=== PATIENT | male | born 1970 | race American Indian/Alaskan Native ===

== ENCOUNTER 2016-07-13 23:40 | Emergency (ER) | payer OTHER ==
[2016-07-14 00:57] LABS: Basophils % (Auto) 0.7 % (0.0-1.8); Eosinophils % (Auto) 0.2 % (0.0-4.3); Hematocrit 47.3 % (35.5-45.6); Hemoglobin 15.7 gm/dl (11.8-15.2); Mean Corpuscular HGB Conc 33 % (32-34); Mean Corpuscular Hemoglobin 30 pg (28-32); Mean Corpuscular Volume 90 fl (84-94); Platelet Count 308 K/mm3 (140-440); Red Blood Count 5.25 M/mm3 (3.65-5.03); Red Cell Distribution Width 13.1 % (13.2-15.2)
[2016-07-14 01:18] LABS: Anion Gap 25 mmol/L; BUN/Creatinine Ratio 16.15; Blood Urea Nitrogen 21 mg/dL (9-20); Calcium 9.6 mg/dL (8.4-10.2); Carbon Dioxide 19 mmol/L (22-30); Glucose 104 mg/dL (75-100); Potassium 4.4 mmol/L (3.6-5.0); Sodium 138 mmol/L (137-145)
[2016-07-14] MEDS ORDERED: TORADOL IV ONE (06:34)
--- NOTE | 2016-07-14 07:09 | Emergency Department Report ---
ED Chest Pain HPI - General Chief Complaint: Chest Pain Stated Complaint: CHEST PAIN/SOB Time Seen by Provider: 07/14/16 06:19 Source: patient, family Mode of arrival: Ambulatory Limitations: No Limitations - History of Present Illness Initial Comments: 46-year-old male with no significant past medical history presents to the hospital with complaints of chest pain since 7 PM. Patient noticed chest pain and shortness of breath while walking to the store last night. Chest pain is in the middle of his chest, described as a intermittent aching pain rated 7/10 in intensity. No aggravating or alleviating factors reported. For the past 4 days patient has had cough productive of clear mucus on occasion and nasal congestion. He denies any fever, calf tenderness, leg edema, history of PE. He also denies cardiac risk factors and denies past medical history, tobacco use , or family history of CAD/stent/HI. Severity scale (0 -10): 0 - Related Data Previous Rx's Medication Instructions Recorded Last Taken Type Benzonatate [Tessalon Perles] 100 mg PO Q8HR PRN #30 capsule 07/14/16 Unknown Rx Ibuprofen [Motrin 800 MG tab] 800 mg PO Q8HR PRN #30 tablet 07/14/16 Unknown Rx Loratadine/Pseudoephedrine 1 tab PO Q12H #30 tablet 07/14/16 Unknown Rx [Claritin-D 12HR] traMADol [Ultram 50 MG tab] 50 mg PO Q6HR PRN #20 tablet 07/14/16 Unknown Rx Allergies Allergy/AdvReac Type Severity Reaction Status Date / Time No Known Allergies Allergy Unverified 01/12/16 08:51 HYACINTH score - Hyacinth Score Age > 65: (0) No Aspirin use within the Past 7 Days: (0) No 3 or more CAD Risk Factors: (0) No 2 or more Angina events in past 24 hrs: (0) No Known CAD with more than 50% Stenosis: (0) No Elevated Cardiac Markers: (0) No ST Deviation Greater than 0.5mm: (0) No HYACINTH Score: 0 ED Review of Systems ROS: Stated complaint: CHEST PAIN/SOB Other details as noted in HPI Comment: All other systems reviewed and negative Other: Constitutional: No fevers chills Eyes: No eye pain visual changes ENT: No ear pain or throat pain. + nasal congestion Neck: Denies pain Respiratory: as per hpi Cardiovascular: Denies palpitations, syncope GI: Denies abdominal pain, nausea, vomiting, diarrheaa : Denies dysuria Musculoskeletal: Denies back pain Skin: Denies rash, lesions, erythema Neurologic: Denies headache, numbness, weakness Psychiatric: Denies suicidal ideation, hallucinations ED Past Medical Hx - Past Medical History Previous Medical History?: No - Surgical History Past Surgical History?: No - Social History Smoking Status: Former Smoker Substance Use Type: Alcohol - Medications Home Medications: Home Medications Medication Instructions Recorded Confirmed Last Taken Type Benzonatate [Tessalon Perles] 100 mg PO Q8HR PRN #30 capsule 07/14/16 Unknown Rx Ibuprofen [Motrin 800 MG tab] 800 mg PO Q8HR PRN #30 tablet 07/14/16 Unknown Rx Loratadine/Pseudoephedrine 1 tab PO Q12H #30 tablet 07/14/16 Unknown Rx [Claritin-D 12HR] traMADol [Ultram 50 MG tab] 50 mg PO Q6HR PRN #20 tablet 07/14/16 Unknown Rx ED Physical Exam - General Limitations: No Limitations - Other Other exam information: General: No limitations, patient is alert in no acute distress Head exam: Atraumatic, normocephalic Eyes exam: Normal appearance ENT: Moist mucous membrane, normal oropharynx Neck exam: Normal inspection, full range of motion, no meningismus nontender Respiratory exam: Clear to auscultation bilateral, no wheezes, rales, crackles Cardiovascular: Normal rate and rhythm, mild tenderness reproducible just to the right of the mid sternum Abdomen: Soft, nondistended, and nontender, with normal bowel sounds, no rebound, or guarding Extremity: Full range of motion normal inspection no deformity, no calf tenderness or edema Back: Normal Inspection, full range of motion, no tenderness Neurologic: Alert, oriented x3, cranial nerves intact, no motor or sensory deficit Psychiatric: normal affect, normal mood Skin: Warm, dry, intact ED Course Vital Signs 07/14/16 07/14/16 07/14/16 00:26 05:10 07:01 Temperature 98.8 F Pulse Rate 75 52 L 52 L Respiratory 22 20 18 Rate Blood Pressure 133/91 Blood Pressure 133/77 128/76 [Left] O2 Sat by Pulse 100 99 98 Oximetry - Reevaluation(s) Reevaluation #1: 07/14/16 07:08 IV Toradol and tramadol ordered - Consultations Consultation #1: 07/14/16 07:[address] Kohli regarding patient's bradycardia and chest pain. As far as Bradycardia is concerned since patient has a history of bradycardia, has normal blood pressure, and has asymptomatic bradycardia this alone is not a reason to admit him and patient may follow-up ED Medical Decision Making - Lab Data Result diagrams: 07/14/16 00:46 07/14/16 00:46 Lab Results 07/14/16 07/14/16 07/14/16 Range/Units 00:46 00:46 03:17 WBC 9.0 (4.5-11.0) K/mm3 RBC 5.25 H (3.65-5.03) M/mm3 Hgb 15.7 H (11.8-15.2) gm/dl Hct 47.3 H (35.5-45.6) % MCV 90 (84-94) fl MCH 30 (28-32) pg MCHC 33 (32-34) % RDW 13.1 L (13.2-15.2) % Plt Count 308 (140-440) K/mm3 Lymph % (Auto) 26.4 (13.4-35.0) % [place] % (Auto) 5.5 (0.0-7.3) % Eos % (Auto) 0.2 (0.0-4.3) % Baso % (Auto) 0.7 (0.0-1.8) % Lymph # 2.4 (1.2-5.4) K/mm3 [place] # 0.5 (0.0-0.8) K/mm3 Eos # 0.0 (0.0-0.4) K/mm3 Baso # 0.1 (0.0-0.1) K/mm3 Seg Neutrophils % 67.2 (40.0-70.0) % Seg Neutrophils # 6.0 (1.8-7.7) K/mm3 D-Dimer (0-234) ng/mlDDU Sodium 138 (137-145) mmol/L Potassium 4.4 (3.6-5.0) mmol/L Chloride 98.0 (98-107) mmol/L Carbon Dioxide 19 L (22-30) mmol/L Anion Gap 25 mmol/L BUN 21 H (9-20) mg/dL Creatinine 1.3 (0.8-1.5) mg/dL Estimated GFR > 60 ml/min BUN/Creatinine Ratio 16.15 % Glucose 104 H (75-100) mg/dL Calcium 9.6 (8.4-10.2) mg/dL Troponin T < 0.010 < 0.010 (0.00-0.029) ng/mL 07/14/16 07/14/16 Range/Units 05:25 06:40 WBC (4.5-11.0) K/mm3 RBC (3.65-5.03) M/mm3 Hgb (11.8-15.2) gm/dl Hct (35.5-45.6) % MCV (84-94) fl MCH (28-32) pg MCHC (32-34) % RDW (13.2-15.2) % Plt Count (140-440) K/mm3 Lymph % (Auto) (13.4-35.0) % [place] % (Auto) (0.0-7.3) % Eos % (Auto) (0.0-4.3) % Baso % (Auto) (0.0-1.8) % Lymph # (1.2-5.4) K/mm3 [place] # (0.0-0.8) K/mm3 Eos # (0.0-0.4) K/mm3 Baso # (0.0-0.1) K/mm3 Seg Neutrophils % (40.0-70.0) % Seg Neutrophils # (1.8-7.7) K/mm3 D-Dimer < 135 (0-234) ng/mlDDU Sodium (137-145) mmol/L Potassium (3.6-5.0) mmol/L Chloride (98-107) mmol/L Carbon Dioxide (22-30) mmol/L Anion Gap mmol/L BUN (9-20) mg/dL Creatinine (0.8-1.5) mg/dL Estimated GFR ml/min BUN/Creatinine Ratio % Glucose (75-100) mg/dL Calcium (8.4-10.2) mg/dL Troponin T < 0.010 (0.00-0.029) ng/mL - EKG Data -: EKG Interpreted by Me (sinus bradycardia rate [address] elevation or T- wave inversion) - EKG Data When compared to previous EKG there are: previous EKG unavailable - Radiology Data Radiology results: image reviewed (cxr pa/lat: lacie) - Medical Decision Making Patient ambulating in the ED without difficulty. Chest pain improved with Toradol and continues to be reproducible on the right side of mid chest just lateral to the sternum. Heart rate does decrease to the high 30s the patient states his typical heart rate is in the 40s he does not report any lightheadedness or syncope. 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 There are no signs of pneumonia, wheezing, or hypoxia. The patient's symptoms are secondary to URI and chest wall pain from coughing. Patient will be discharged home with symptomatic treatment with PMD follow-up encouraged. - Differential Diagnosis atypical chest pain, costochondritis, PE, HI, unstable angina, bronchitis Critical Care Time: No Critical care attestation.: If time is entered above; I have spent that time in minutes in the direct care of this critically ill patient, excluding procedure time. ED Disposition Clinical Impression: URI (upper respiratory infection), Nasal congestion, Costochondritis, acute Disposition: DISCHARGED TO HOME OR SELFCARE Is pt being admited?: No Does the pt Need Aspirin: No Condition: Stable Instructions: Upper Respiratory Infection (ED), Costochondritis (ED) Additional Instructions: Take the medication as prescribed. Follow up with the doctor or clinic provided. Return if symptoms worsen. Prescriptions: Benzonatate [Tessalon Perles] 100 mg PO Q8HR PRN #30 capsule PRN Reason: Cough Ibuprofen [Motrin 800 MG tab] 800 mg PO Q8HR PRN #30 tablet PRN Reason: Pain Loratadine/Pseudoephedrine [Claritin-D 12HR] 1 tab PO Q12H #30 tablet traMADol [Ultram 50 MG tab] 50 mg PO Q6HR PRN #20 tablet PRN Reason: Pain Referrals: SAMUEL COYLE MD [Staff Physician] - 3-5 Days [facility] [Provider Group] - 3-5 Days Forms: Work/School Release Form(ED) Time of Disposition: 08:15
--- NOTE | 2016-07-14 07:35 | XRay Report ---
ROUTINE CHEST, TWO VIEWS: HISTORY: Cough, shortness of breath. The trachea, heart, mediastinal contour, lung martínez and bony thorax are unremarkable. IMPRESSION: Unremarkable chest x-ray.
[2016-07-14 08:51] VITALS: BP 158/86
== END 2016-07-14 08:50 | disposition home or self-care (01) ==
LOC: ED 23:40
DX: J06.9 Acute upper respiratory infection, unspecified (principal); R09.81 Nasal congestion; M94.0 Chondrocostal junction syndrome [Tietze]; Z87.891 Personal history of nicotine dependence
CPT/HCPCS: 36415; 71020; 80048; 84484; 85025; 85379; 93005; 93010; 96374; 99285; J1885

== ENCOUNTER 2017-11-04 06:13 | Emergency (ER) | payer OTHER ==
[2017-11-04] MEDS ORDERED: MORPHINE IM ONE (06:33)
--- NOTE | 2017-11-04 06:33 | Emergency Department Report ---
ED Chest Pain HPI - General Stated Complaint: CHEST PAIN Time Seen by Provider: 11/04/17 06:15 Source: patient, EMS Mode of arrival: Stretcher Limitations: No Limitations - History of Present Illness Initial Comments: She is a 47-year-old male that presents emergency room with chest pain 1 hour. Patient states he was at work and developed a very strong severe chest pain in his right chest radiating to the anterior left chest. Patient states the pain is a 10 out of 10. Patient was brought in by EMS. Patient was given aspirin and nitroglycerin in route. Patient denies nausea and vomiting. Patient does complain of diaphoresis and shortness of breath. MD Complaint: chest pain -: Sudden Onset: during exertion Pain Location: right chest Pain Radiation: other (radiates to from rigth lateral chest to left anterior chest. ) Severity: severe Severity scale (0 -10): 7 Quality: sharp Consistency: constant Improves With: rest Worsens With: exertion, palpation, movement re: diaphoresis, dyspnea, sense of impending doom. denies: nausea, vomting Other Symptoms: denies: cough, fever, syncope, rash, acid taste in mouth, leg swelling, palpitations, burping Treatments Prior to Arrival: aspirin, nitroglycerin Aspirin use within the Past 7 Days: (0) No - Related Data On Oral Contraceptives: No Home Medications Medication Instructions Recorded Confirmed Last Taken No Known Home Medications [No 11/04/17 11/04/17 Unknown Reported Home Medications] Allergies Allergy/AdvReac Type Severity Reaction Status Date / Time No Known Allergies Allergy Unverified 01/12/16 08:51 Heart Score - HEART Score History: Slightly suspicious EKG: Normal Age: 45-65 Risk factors: No known risk factors Troponin: < normal limit HEART Score: 1 ED Review of Systems ROS: Stated complaint: CHEST PAIN Other details as noted in HPI Constitutional: denies: chills, fever Eyes: denies: eye pain, eye discharge, vision change ENT: denies: ear pain, throat pain Respiratory: shortness of breath, SOB with exertion, SOB at rest. denies: cough , wheezing Cardiovascular: chest pain. denies: palpitations Endocrine: no symptoms reported Gastrointestinal: denies: abdominal pain, nausea, diarrhea Genitourinary: denies: urgency, dysuria Musculoskeletal: denies: back pain, joint swelling, arthralgia Skin: denies: rash, lesions Neurological: denies: headache, weakness, paresthesias Psychiatric: denies: anxiety, depression Hematological/Lymphatic: denies: easy bleeding, easy bruising ED Past Medical Hx - Past Medical History Previous Medical History?: No - Surgical History Past Surgical History?: No - Family History Family history: hypertension - Social History Smoking Status: Former Smoker Substance Use Type: Alcohol - Medications Home Medications: Home Medications Medication Instructions Recorded Confirmed Last Taken Type No Known Home Medications [No 11/04/17 11/04/17 Unknown History Reported Home Medications] ED Physical Exam - General Limitations: No Limitations General appearance: alert, in no apparent distress - Head Head exam: Present: atraumatic, normocephalic - Eye Eye exam: Present: normal appearance - ENT ENT exam: Present: mucous membranes moist - Neck Neck exam: Present: normal inspection - Respiratory Respiratory exam: Present: normal lung sounds bilaterally. Absent: respiratory distress - Cardiovascular Cardiovascular Exam: Present: regular rate, normal rhythm. Absent: systolic murmur, diastolic murmur, rubs, gallop - GI/Abdominal GI/Abdominal exam: Present: soft, normal bowel sounds - Rectal Rectal exam: Present: deferred - Extremities Exam Extremities exam: Present: normal inspection - Back Exam Back exam: Present: normal inspection - Neurological Exam Neurological exam: Present: alert, oriented X3 - Psychiatric Psychiatric exam: Present: normal affect, normal mood - Skin Skin exam: Present: warm, dry, intact, normal color. Absent: rash ED Course Vital Signs 11/04/17 11/04/17 11/04/17 06:32 06:40 06:45 Temperature 98.1 F Pulse Rate 53 L 55 L Respiratory 12 16 13 Rate Blood Pressure 121/76 121/76 Blood Pressure 121/76 [Left] O2 Sat by Pulse 100 100 Oximetry 11/04/17 11/04/17 11/04/17 07:00 07:15 07:31 Temperature Pulse Rate 44 L 77 48 L Respiratory 12 33 H 14 Rate Blood Pressure 129/80 129/80 141/71 Blood Pressure [Left] O2 Sat by Pulse 100 100 100 Oximetry 11/04/17 11/04/17 11/04/17 08:13 08:15 08:31 Temperature Pulse Rate Respiratory Rate Blood Pressure 141/77 141/77 141/77 Blood Pressure [Left] O2 Sat by Pulse 99 95 98 Oximetry 11/04/17 11/04/17 11/04/17 08:45 09:00 09:15 Temperature Pulse Rate Respiratory Rate Blood Pressure 141/71 135/80 135/80 Blood Pressure [Left] O2 Sat by Pulse 98 98 97 Oximetry 11/04/17 11/04/17 11/04/17 09:31 09:45 10:01 Temperature Pulse Rate Respiratory Rate Blood Pressure 140/75 140/75 143/80 Blood Pressure [Left] O2 Sat by Pulse 99 99 99 Oximetry 11/04/17 11/04/17 11/04/17 11:27 11:33 11:35 Temperature Pulse Rate 48 L 112 H 99 H Respiratory Rate Blood Pressure 145/79 153/86 166/92 Blood Pressure [Left] O2 Sat by Pulse Oximetry 11/04/17 11/04/17 11/04/17 11:36 11:37 11:38 Temperature Pulse Rate 85 88 71 Respiratory Rate Blood Pressure 147/88 133/89 134/83 Blood Pressure [Left] O2 Sat by Pulse Oximetry 11/04/17 11:39 Temperature Pulse Rate 61 Respiratory Rate Blood Pressure 143/79 Blood Pressure [Left] O2 Sat by Pulse Oximetry - Reevaluation(s) Reevaluation #1: Discussed all results with patient. Patient agrees with plan of care and admission. 11/04/17 08:47 - Consultations Consultation #1: Hospitalist consulted for admission. Hospitalist agrees to admit. Dr Wills to assume care. Full report given to hospitalist 11/04/17 08:47 11/04/17 08:49 HYACINTH score - Hyacinth Score Age > 65: (0) No Aspirin use within the Past 7 Days: (0) No 3 or more CAD Risk Factors: (0) No 2 or more Angina events in past 24 hrs: (0) No Known CAD with more than 50% Stenosis: (0) No Elevated Cardiac Markers: (0) No ST Deviation Greater than 0.5mm: (0) No HYACINTH Score: 0 ED Medical Decision Making - Lab Data Result diagrams: 11/04/17 07:11 11/04/17 07:11 - EKG Data -: EKG Interpreted by Ri EKG shows normal: sinus rhythm, axis, intervals, QRS complexes, ST-T waves Rate: normal - Radiology Data Radiology results: report reviewed no pe on cta. negative cta. - Medical Decision Making Patient is a 47-year-old male presents emergency room with complaints of chest pain. Will admit patient to the hospitalist service for further evaluation and treatment. Patient had a negative CTA for PE and aortic dissection. No pericardial effusion noted. - Differential Diagnosis chest pain. sob. acs. pericarditis. chest wall. Critical care attestation.: If time is entered above; I have spent that time in minutes in the direct care of this critically ill patient, excluding procedure time. ED Disposition Clinical Impression: SOB (shortness of breath) Chest pain Qualifiers: Chest pain type: unspecified Qualified Code(s): R07.9 - Chest pain, unspecified Disposition: DC-09 OP ADMIT IP TO THIS HOSP Is pt being admited?: Yes Does the pt Need Aspirin: No Condition: Stable Time of Disposition: 08:45
[2017-11-04 07:31] LABS: Basophils % (Auto) 0.9 % (0.0-1.8); Eosinophils % (Auto) 1.2 % (0.0-4.3); Hematocrit 40.9 % (35.5-45.6); Hemoglobin 13.8 gm/dl (11.8-15.2); Lymphocytes # (Auto) 1.2 K/mm3 (1.2-5.4); Lymphocytes % (Auto) 30.4 % (13.4-35.0); Mean Corpuscular HGB Conc 34 % (32-34); Mean Corpuscular Hemoglobin 32 pg (28-32); Mean Corpuscular Volume 94 fl (84-94); Monocytes # (Auto) 0.4 K/mm3 (0.0-0.8); Monocytes % (Auto) 9.9 % (0.0-7.3); Platelet Count 271 K/mm3 (140-440); Red Blood Count 4.35 M/mm3 (3.65-5.03); Red Cell Distribution Width 13.1 % (13.2-15.2)
[2017-11-04 07:39] LABS: Alanine Aminotransferase 29 units/L (7-56); Albumin 4.3 g/dL (3.9-5); BUN/Creatinine Ratio 9; Blood Urea Nitrogen 10 mg/dL (9-20); Calcium 9.2 mg/dL (8.4-10.2); Hemolysis Index 10
--- NOTE | 2017-11-04 08:25 | Cat Scan Report ---
CTA CHEST INDICATION: Chest pain, shortness of breath. COMPARISON: None similar. FINDINGS: Chest CTA performed following intravenous administration of 100 cc of Omnipaque 350. Rotational MIP's also obtained. Normal heart size. No effusions. No aortic aneurysm, dissection or suspicious pulmonary arterial filling defects. No size significant adenopathy. Normal airway. Unremarkable thyroid. Clear lungs. Slight nonspecific distal esophageal wall prominence/thickening, not excluded for gastroesophageal reflux and/or hiatal hernia, amongst others. Images through included upper abdomen reveal no significant abnormality. Mild lower thoracic spine degenerative spurring. CONCLUSION: No CT evidence of pulmonary embolism with few incidental findings, as above. Thank you for the opportunity to participate in this patient's care.
[2017-11-04] MEDS ORDERED: NARCAN 0.4 MG/1 ML IV PRN (09:06)
[2017-11-04] MEDS ORDERED: MORPHINE IV PRN (09:06)
[2017-11-04] MEDS ORDERED: TYLENOL PO PRN (09:06)
[2017-11-04] MEDS ORDERED: ZOFRAN IV PRN (09:06)
[2017-11-04] MEDS ORDERED: PROVENTIL IH PRN (09:06)
[2017-11-04] MEDS ORDERED: SODIUM CHLORIDE FLUSH SYRINGE 10 ML IV PRN ×2 (09:06→09:07)
--- NOTE | 2017-11-04 09:06 | History and Physical Report ---
History of Present Illness Date of examination: 11/04/17 Date of admission: 11/04/17 Chief complaint: CHEST PAIN History of present illness: The patient is a 47-year-old male that presents emergency room with chest pain 1 hour. Currently the patient he has no particular medical history he reports that he possibly has underlying anxiety disorder as this has happened before. He reports that while at work he began to have palpitations and very strong chest pain to the right side of his chest started from anterior chest to right upper abdomen. Patient medically diaphoresis nausea vomiting. Relates to the telemetry tested. He was given aspirin and nitroglycerin en route assess for leaks called EMS. On arrival to the patient the patient reports being chest pain free Past History Past Medical History: No medical history Past Surgical History: No surgical history Social history: full code Family history: no significant family history Medications and Allergies Allergies Allergy/AdvReac Type Severity Reaction Status Date / Time No Known Allergies Allergy Unverified 01/12/16 08:51 Home Medications Medication Instructions Recorded Confirmed Last Taken Type No Known Home Medications [No 11/04/17 11/04/17 Unknown History Reported Home Medications] Exam - Constitutional Vitals: Temp Pulse Resp BP Pulse Ox 98.1 F 53 L 16 121/76 100 11/04/17 06:40 11/04/17 06:40 11/04/17 06:40 11/04/17 06:40 11/04/17 06:40 General appearance: Present: no acute distress, well-nourished - EENT Eyes: Present: PERRL, EOM intact ENT: hearing intact, clear oral mucosa, dentition normal - Neck Neck: Present: supple, normal ROM - Respiratory Respiratory effort: normal Respiratory: bilateral: CTA - Cardiovascular Rhythm: regular Heart Sounds: Present: S1 & S2. Absent: systolic murmur - Extremities Extremities: no ischemia, pulses intact, pulses symmetrical, No edema, normal temperature, normal color, Full ROM Peripheral Pulses: within normal limits - Abdominal General gastrointestinal: Present: soft, non-tender, non-distended, normal bowel sounds Male genitourinary: Present: normal - Integumentary Integumentary: Present: clear, warm, dry - Musculoskeletal Musculoskeletal: strength equal bilaterally - Psychiatric Psychiatric: appropriate mood/affect, intact judgment & insight, memory intact, cooperative - Neurologic Neurologic: CNII-XII intact, moves all extremities, gait normal - Allied Health Allied health notes reviewed: nursing, social work Results - Labs CBC & Chem 7: 11/04/17 07:11 11/04/17 07:11 Labs: Laboratory Last Values WBC 3.8 K/mm3 (4.5-11.0) L 11/04/17 07:11 RBC 4.35 M/mm3 (3.65-5.03) 11/04/17 07:11 Hgb 13.8 gm/dl (11.8-15.2) 11/04/17 07:11 Hct 40.9 % (35.5-45.6) 11/04/17 07:11 MCV 94 fl (84-94) 11/04/17 07:11 MCH 32 pg (28-32) 11/04/17 07:11 MCHC 34 % (32-34) 11/04/17 07:11 RDW 13.1 % (13.2-15.2) L 11/04/17 07:11 Plt Count 271 K/mm3 (140-440) 11/04/17 07:11 Lymph % (Auto) 30.4 % (13.4-35.0) 11/04/17 07:11 Clinch % (Auto) 9.9 % (0.0-7.3) H 11/04/17 07:11 Eos % (Auto) 1.2 % (0.0-4.3) 11/04/17 07:11 Baso % (Auto) 0.9 % (0.0-1.8) 11/04/17 07:11 Lymph # 1.2 K/mm3 (1.2-5.4) 11/04/17 07:11 Clinch # 0.4 K/mm3 (0.0-0.8) 11/04/17 07:11 Eos # 0.0 K/mm3 (0.0-0.4) 11/04/17 07:11 Baso # 0.0 K/mm3 (0.0-0.1) 11/04/17 07:11 Seg Neutrophils % 57.6 % (40.0-70.0) 11/04/17 07:11 Seg Neutrophils # 2.2 K/mm3 (1.8-7.7) 11/04/17 07:11 ESR 2 mm/Hr (0-20) 11/04/17 06:33 D-Dimer < 135.00 ng/mlDDU (0-234) 11/04/17 07:11 Sodium 137 mmol/L (137-145) 11/04/17 07:11 Potassium 4.1 mmol/L (3.6-5.0) 11/04/17 07:11 Chloride 96.4 mmol/L (98-107) L 11/04/17 07:11 Carbon Dioxide 18 mmol/L (22-30) L 11/04/17 07:11 Anion Gap 27 mmol/L 11/04/17 07:11 BUN 10 mg/dL (9-20) 11/04/17 07:11 Creatinine 1.1 mg/dL (0.8-1.5) 11/04/17 07:11 Estimated GFR > 60 ml/min 11/04/17 07:11 BUN/Creatinine Ratio 9 % 11/04/17 07:11 Glucose 82 mg/dL (75-100) 11/04/17 07:11 Calcium 9.2 mg/dL (8.4-10.2) 11/04/17 07:11 Total Bilirubin 1.10 mg/dL (0.1-1.2) 11/04/17 07:11 AST 63 units/L (5-40) H 11/04/17 07:11 ALT 29 units/L (7-56) 11/04/17 07:11 Alkaline Phosphatase 81 units/L (35-129) 11/04/17 07:11 Troponin T < 0.010 ng/mL (0.00-0.029) 11/04/17 07:11 NT-Pro-B Natriuret Pep 8.71 pg/mL (0-450) 11/04/17 07:11 Total Protein 7.1 g/dL (6.3-8.2) 11/04/17 07:11 Albumin 4.3 g/dL (3.9-5) 11/04/17 07:11 Albumin/Globulin Ratio 1.5 % 11/04/17 07:11 Assessment and Plan Assessment and plan: The patient is a 47-year-old male that presents emergency room with chest pain 1 hour. Currently the patient he has no particular medical history he reports that he possibly has underlying anxiety disorder as this has happened before. He reports that while at work he began to have palpitations and very strong chest pain to the right side of his chest started from anterior chest to right upper abdomen. Patient medically diaphoresis nausea vomiting. Relates to the telemetry tested. He was given aspirin and nitroglycerin en route assess for leaks called EMS. On arrival to the patient the patient reports being chest pain free chest pain HYACINTH score of 0 Negative CTA for PE ?Anxiety plan Admit to Tele Stress test in am DAPT, statin Lipid profile Oxygen Advance Directives: Yes Plan of care discussed with patient/family: Yes
[2017-11-04] MEDS ORDERED: NITROSTAT SL PRN (09:07)
[2017-11-04 09:49] LABS: Chol/HDL Ratio 1.49 %
[2017-11-04] MEDS ORDERED: SODIUM CHLORIDE FLUSH SYRINGE 10 ML IV SCH (10:00)
[2017-11-04] MEDS ORDERED: HEPARIN SUB-Q SCH (10:00)
[2017-11-04] MEDS ORDERED: LEXISCAN IV ONE ×2 (10:59→12:00)
[2017-11-04 12:08] VITALS: BP 143/79
--- NOTE | 2017-11-04 15:03 | Short Stay Summary ---
Short Stay Documentation Date of service: 11/04/17 Narrative H&P: The patient is a 47-year-old male that presents emergency room with chest pain 1 hour. Currently the patient he has no particular medical history he reports that he possibly has underlying anxiety disorder as this has happened before. He reports that while at work he began to have palpitations and very strong chest pain to the right side of his chest started from anterior chest to right upper abdomen. Patient medically diaphoresis nausea vomiting. Relates to the telemetry tested. He was given aspirin and nitroglycerin en route EMS. On arrival to the patient the patient reports being chest pain free. Patient had chest ct was negative also preceded to have a stress test that was negative. Discharge Diagnosis chest pain secondary anxiety related psychmotor disorder Anxiety - History H&P: dictated Past Medical History: other (anxiety) Past Surgical History: No surgical history Social history: no significant social history - Allergies and Medications Current Medications: Allergies No Known Allergies Allergy (Unverified 01/12/16 08:51) Home Medications Medication Instructions Recorded Confirmed Last Taken Type No Known Home Medications [No 11/04/17 11/04/17 Unknown History Reported Home Medications] Active Medications Acetaminophen (Tylenol) 650 mg PO Q4H PRN PRN Reason: Pain MILD(1-3)/Fever >100.5/KOCH Albuterol (Proventil) 2.5 mg IH Q4HRT PRN PRN Reason: Shortness Of Breath Aspirin (Ecotrin) 325 mg PO QDAY [facility] Heparin Sodium (Porcine) (Heparin) 5,000 unit SUB-Q Q12HR [facility] Last Admin: 11/04/17 10:09 Dose: Not Given Morphine Sulfate (Morphine) 2 mg IV Q4H PRN PRN Reason: Pain, Moderate (4-6) Naloxone HCl (Narcan 0.4 Mg/1 Ml) 0.1 mg IV Q2MIN PRN PRN Reason: Res Rate </= 8 or 02 SAT < 92% Nitroglycerin (Nitrostat) 0.4 mg SL Q5M PRN PRN Reason: Chest Pain Ondansetron HCl (Zofran) 4 mg IV Q8H PRN PRN Reason: Nausea And Vomiting Sodium Chloride (Sodium Chloride Flush Syringe 10 Ml) 10 ml IV BID [facility] Last Admin: 11/04/17 10:10 Dose: 10 ml Sodium Chloride (Sodium Chloride Flush Syringe 10 Ml) 10 ml IV PRN PRN PRN Reason: LINE FLUSH - Physical exam General appearance: no acute distress, well-nourished Integumentary: no growths HEENT: Atraumatic, PERRLA, EOMI Lungs: Clear to auscultation Heart: Regular rate, No murmurs Gastrointestinal: normal, normoactive bowel sounds Extremities: no ischemia, pulses intact, pulses symmetrical, No edema, Full ROM Neurological: Normal gait, Normal speech, Strength at 5/5 X4 ext, Normal tone, Sensation intact, Cranial nerves 3-12 NL, Reflexes 2+ - Disposition Condition at discharge: Stable Disposition: [id number] OP ADMIT IP TO THIS [facility] Short Stay Discharge Plan Activity: advance as tolerated, up only with assistance Diet: low cholesterol Special Instructions: record daily BP diary Follow up with: PRIMARY CARE, [Primary Care Provider] - 7 Days
[2017-11-05] MEDS ORDERED: ECOTRIN PO SCH (10:00)
== END 2017-11-04 15:25 | disposition admitted as inpatient to this hospital (09) ==
LOC: ED 06:13 → EEVIPCON 09:06 → UNDOADMIN 09:06 → 4A 09:06
DX: R07.89 Other chest pain (principal); R06.02 Shortness of breath; Z87.891 Personal history of nicotine dependence
CPT/HCPCS: 36415; 71275; 78452; 80053; 80061; 83880; 84484; 85025; 85379; 85652; 93005; 93010; 93017; 96372; 96374; 99285; A9502; J2270; J2785; Q9967; 96375

== ENCOUNTER 2018-08-07 15:06 | Emergency (ER) | payer OTHER ==
[2018-08-07] MEDS ORDERED: BENADRYL IV STA (15:40)
[2018-08-07] MEDS ORDERED: SOLU-Medrol IV ONE (15:41)
[2018-08-07] MEDS ORDERED: PEPCID IV ONE ×2 (15:41→18:41)
[2018-08-07] MEDS ORDERED: NACL 0.9% 1000 ML 1,000 ML IV ONE (15:42)
--- NOTE | 2018-08-07 15:47 | Emergency Department Report ---
Blank Doc - Documentation Documentation: 48 Y/O MALE PRESENTS TO ED WITH ALLERGIC REACTION THAT STARTED AFTER VISIT TO [facility]. NOW HAS SWOLLEN EYES AND FACE. NORMAL VOICE AND SWALLOWING. NO DISTRESS. WAS SEEN HERE EARLY THIS AM BUT DIDNT START MEDICAITON DUE TO FEELING HE WAS WORSINING. EXAM NO STRIDOR OR DYSPNEA. NORMAL SPEECH. PLAN MEDICATE AND DISCHARGE
[2018-08-07] MEDS ORDERED: BENADRYL ONE (18:40)
[2018-08-07] MEDS ORDERED: SOLU-Medrol ONE (18:41)
[2018-08-07] MEDS ORDERED: ADRENALINE P/F IM ONE (19:50)
--- NOTE | 2018-08-07 19:58 | Emergency Department Report ---
ED Allergic Reaction HPI - General Chief complaint: Allergic Reaction Stated complaint: ALLERGIC REACTION Time Seen by Provider: 08/07/18 15:40 Source: patient Mode of arrival: Ambulatory Limitations: No Limitations - History of Present Illness Initial Comments: Patient is a 48-year-old [place] male with no past medical history presents to the ED with c/o worsening erythematous maculopapular rash on his scalp with purulent discharge and pain with and bilateral eyelid swelling for the last 2 days after using a hair dye. Patient states that in the last 8 hours the bilateral eye swelling has worsened and the itchy erythematous rashes on his scalp have also worsened. Patient was treated for the same over 12 hours ago and was discharged home on medication but the patient has not taken any medications after obtaining the medications. Patient denies fever, chills, nausea, vomiting, diarrhea, dizziness, or swollen lips, swollen tongue, dysphonia, abdominal pain, cough, wheezing, nasal and sinus congestion or cough. MD Complaint: allergic reaction, hives, facial swelling -: Sudden, days(s) (2) Exposure: other (chemical dye) Symptoms: rash, itching, facial swelling (bilateral eyelid swelling). denies: lip swelling, difficulty swallowing, difficulty breathing, orolingual swelling, hoarseness, syncopy, dizziness, nausea, vomiting, abdominal pain Severity: severe Treatment Prior to Arrival: none Previous Allergy History: prior ED visit(s) - Related Data Previous Rx's Medication Instructions Recorded Last Taken Type EPINEPHrine [Epipen] 0.3 mg IJ ONCE #1 pen 08/07/18 Unknown Rx Ibuprofen [Motrin] 600 mg PO Q8H PRN #20 tablet 08/07/18 Unknown Rx Ranitidine HCl [Zantac] 150 mg PO Q12H #30 tablet 08/07/18 Unknown Rx cephALEXin [Keflex] 500 mg PO Q6HR #40 capsule 08/07/18 Unknown Rx diphenhydrAMINE [Benadryl CAP] 25 mg PO Q6HR PRN #30 capsule 08/07/18 Unknown Rx methylPREDNISolone [Medrol] 4 mg PO DAILY #21 tab.ds.pk 08/07/18 Unknown Rx Allergies Allergy/AdvReac Type Severity Reaction Status Date / Time No Known Allergies Allergy Unverified 01/12/16 08:51 ED Review of Systems ROS: Stated complaint: ALLERGIC REACTION Other details as noted in HPI Comment: All other systems reviewed and negative Constitutional: no symptoms reported, see HPI. denies: chills, diaphoresis, fever, malaise, weakness Eyes: as per HPI, other (Bilateral eyelid swelling). denies: eye pain, eye discharge, vision change ENT: as per HPI, other (bilateral eyelid swelling). denies: ear pain, throat pain, dental pain, hearing loss Respiratory: no symptoms reported, see HPI. denies: cough, shortness of breath, SOB with exertion, SOB at rest Cardiovascular: as per HPI. denies: chest pain, palpitations, dyspnea on exertion, syncope, paroxysmal nocturnal dyspnea Endocrine: no symptoms reported. denies: see HPI, flushing, intolerance to heat, unexplained weight gain Gastrointestinal: as per HPI. denies: abdominal pain, nausea, diarrhea, constipation, hematemesis Genitourinary: as per HPI. denies: urgency, dysuria, frequency, hematuria, discharge Musculoskeletal: as per HPI. denies: back pain, joint swelling, arthralgia Skin: as per HPI, rash, change in color, pruritus, other (diffuse erythematous rash on scalp) Neurological: as per HPI. denies: headache, weakness Psychiatric: as per HPI Hematological/Lymphatic: as per HPI ED Past Medical Hx - Past Medical History Previous Medical History?: No - Surgical History Past Surgical History?: No - Social History Smoking Status: Light Tobacco Smoker Substance Use Type: None - Medications Home Medications: Home Medications Medication Instructions Recorded Confirmed Last Taken Type EPINEPHrine [Epipen] 0.3 mg IJ ONCE #1 pen 08/07/18 Unknown Rx Ibuprofen [Motrin] 600 mg PO Q8H PRN #20 tablet 08/07/18 Unknown Rx Ranitidine HCl [Zantac] 150 mg PO Q12H #30 tablet 08/07/18 Unknown Rx cephALEXin [Keflex] 500 mg PO Q6HR #40 capsule 08/07/18 Unknown Rx diphenhydrAMINE [Benadryl CAP] 25 mg PO Q6HR PRN #30 capsule 08/07/18 Unknown Rx methylPREDNISolone [Medrol] 4 mg PO DAILY #21 tab.ds.pk 08/07/18 Unknown Rx ED Physical Exam - General Limitations: No Limitations General appearance: in no apparent distress - Head Head exam: Present: atraumatic, normocephalic, normal inspection, other - Eye Eye exam: Present: normal appearance, PERRL, EOMI, scleral icterus, conjunctival injection, periorbital swelling, other (bilateral eyelid swelling) Pupils: Present: normal accommodation - ENT ENT exam: Present: normal exam, normal orophraynx, mucous membranes moist, TM's normal bilaterally, normal external ear exam - Neck Neck exam: Present: normal inspection, full ROM. Absent: tenderness, lymphadenopathy - Respiratory Respiratory exam: Present: normal lung sounds bilaterally. Absent: respiratory distress, wheezes, rales, rhonchi, accessory muscle use, decreased breath sounds, prolonged expiratory - Cardiovascular Cardiovascular Exam: Present: regular rate, normal rhythm, normal heart sounds - GI/Abdominal GI/Abdominal exam: Present: soft, normal bowel sounds. Absent: distended, tenderness, hyperactive bowel sounds - Rectal Rectal exam: Present: deferred - Extremities Exam Extremities exam: Present: normal inspection, full ROM, normal capillary refill - Back Exam Back exam: Present: normal inspection, full ROM. Absent: tenderness, CVA tenderness (R), CVA tenderness (L), paraspinal tenderness, vertebral tenderness - Neurological Exam Neurological exam: Present: alert, oriented X3, CN II-XII intact, normal gait, reflexes normal - Psychiatric Psychiatric exam: Present: normal affect - Skin Skin exam: Present: warm, dry, intact, normal color, rash, erythema, urticaria, other (Erythematous maculopapular urticaria rash on scalp) ED Course Vital Signs 08/07/18 15:40 Temperature 97.9 F Pulse Rate 67 Respiratory 16 Rate Blood Pressure 157/81 O2 Sat by Pulse 96 Oximetry ED Medical Decision Making - Differential Diagnosis Acuet allergic reaction, irritant dermatitis Critical care attestation.: If time is entered above; I have spent that time in minutes in the direct care of this critically ill patient, excluding procedure time. ED Disposition Clinical Impression: Irritant dermatitis, Itching with irritation, Acute folliculitis, Acute urticaria Disposition: TO HOME OR SELFCARE Is pt being admited?: No Does the pt Need Aspirin: No Condition: Stable Instructions: Urticaria (ED), Allergies (ED), Itchy Skin (ED) Additional Instructions: CONTINUE TAKING THE PREVIOUSLY PRESCRIBED MEDICATIONS AND FOLLOW UP ADVISED WITH YOUR PRIMARY CARE PHYSICIAN ADVISED. Prescriptions: EPINEPHrine [Epipen] 0.3 mg IJ ONCE #1 pen [facility] - 3-5 Days Time of Disposition: 20:05 Print Language: BENINESE
[2018-08-07 22:31] VITALS: BP 145/81
== END 2018-08-07 21:40 | disposition home or self-care (01) ==
LOC: ED 15:06
DX: L73.9 Follicular disorder, unspecified (principal); L24.9 Irritant contact dermatitis, unspecified cause; F17.200 Nicotine dependence, unspecified, uncomplicated
CPT/HCPCS: 96372; 96374; 96375; 99283; J0171; J1200; J2930; J7030